=== PATIENT | male | born 1980 | race Two or more races ===

== ENCOUNTER 2023-07-19 09:51 | Emergency (ER) | payer BC, MEDICAID ==
[~2023-07-19] VITALS: Ht 160 cm; Wt 73.5 kg
[2023-07-19 10:01] VITALS: BP 138/84; TEMP 98.2; O2SAT 98
[2023-07-19] MEDS ORDERED: KETOROLAC TROMETHAMINE INJ 30 MG/ML VIAL ONE (10:22)
[2023-07-19] MEDS ORDERED: CYCL10TA9 PO (10:25)
[2023-07-19] MEDS ORDERED: METH4TAB17 PO (10:25)
[2023-07-19] MEDS ORDERED: IBUP-1955 PO (10:25)
[2023-07-19] MEDS: KETOROLAC TROMETHAMINE INJ 30 MG/ML VIAL IV ONE (10:32)
== END 2023-07-19 10:54 | disposition home or self-care (01) ==
LOC: ER 10:03
DX: M54.42 Lumbago with sciatica, left side (principal)
CPT/HCPCS: 99283; 96374; J1885